=== PATIENT | female | born 1990 | race Two or more races ===

== ENCOUNTER 2023-08-16 08:11 | Emergency (ER) | payer OTHER ==
[~2023-08-16] VITALS: Ht 165.1 cm; Wt 59.0 kg
[~2023-08-16 08:11] MED LIST: LOVENOX 40 MG/0.4 ML SUBCUTANEO; POM (MEDICAMENTO EN PISO) VG; PROCARDIA PO; VISTARIL50 MG PO
[2023-08-16 09:26] LABS: HEMATOCRIT 38.8 % (36.0-45.00); HEMOGLOBIN 13.4 g/dL (12.0-15.00); MEAN CELL VOLUME 88.1 fL (80.00-100.00); MEAN CORPUSCULAR HEMOGLOBIN 30.5 pg (27.00-32.0); MEAN CORPUSCULAR HGB CONC 34.6 g/dl (32.0-36.0); PLATELET COUNT 171 K/uL (150-450); RED BLOOD COUNT 4.41 M/uL (4.00-6.00); RED CELL DISTRIBUTION WIDTH 12.4 % (11.5-14.5)
== END 2023-08-16 10:37 | disposition home or self-care (01) ==
LOC: ER 08:13
PROVIDERS: Emergency Medicine
DX: J06.9 Acute upper respiratory infection, unspecified (principal); Z91.041 Radiographic dye allergy status; Z20.822 Contact with and (suspected) exposure to COVID-19

== ENCOUNTER 2023-08-20 08:14 | Emergency (ER) | payer OTHER ==
[~2023-08-20] VITALS: Ht 165.1 cm; Wt 59.0 kg
[2023-08-20 09:50] LABS: HEMATOCRIT 34.6 % (36.0-45.00); HEMOGLOBIN 12.3 g/dL (12.0-15.00); MEAN CELL VOLUME 88.4 fL (80.00-100.00); MEAN CORPUSCULAR HEMOGLOBIN 31.4 pg (27.00-32.0); MEAN CORPUSCULAR HGB CONC 35.5 g/dl (32.0-36.0); RED BLOOD COUNT 3.92 M/uL (4.00-6.00); RED CELL DISTRIBUTION WIDTH 12.3 % (11.5-14.5)
[2023-08-20 10:10] LABS: ALBUMIN 3.7 gm/dL (3.4-5.0); BILIRUBIN TOTAL 0.66 mg/dL (0.3-1.2); CALCIUM 8.4 mg/dL (8.5-10.1); CREATININE SERUM 0.6 mg/dL (0.55-1.02); GFR 115.13; GLOBULINA 3.4 G/DL (2.4-3.5); POTASSIUM 3.57 mEq/L (3.5-5.1); TOTAL PROTEIN 7.1 gm/dL (6.4-8.2)
[2023-08-20 10:30] LABS: PLATELET COUNT 111 K/uL (150-450)
[2023-08-20] MEDS ORDERED: PEPCID AC20 MG PO (10:33)
[2023-08-20] MEDS ORDERED: TUSNEL LIQUID178 ML PO (10:33)
[2023-08-20] MEDS ORDERED: ONDANSETRON ODT8 MG PO (10:33)
[2023-08-20] MEDS ORDERED: PAXLOVID 300-11 EAC1 PO (10:33)
== END 2023-08-20 10:51 | disposition home or self-care (01) ==
LOC: ER 08:15
PROVIDERS: General Practice
DX: U07.1 COVID-19 (principal); Z91.040 Latex allergy status

== ENCOUNTER 2024-05-23 20:41 | Emergency (ER) | payer OTHER ==
[~2024-05-23] VITALS: Ht 167.6 cm; Wt 54.4 kg
[~2024-05-23 20:41] MED LIST changes: +ONDANSETRON ODT8 MG PO; +PAXLOVID 300-11 EAC1 PO; +PEPCID AC20 MG PO; +TUSNEL LIQUID178 ML PO
[2024-05-23 22:28] LABS: HEMATOCRIT 38.3 % (36.0-45.00); HEMOGLOBIN 13.6 g/dL (12.0-15.00); MEAN CELL VOLUME 88.9 fL (80.00-100.00); MEAN CORPUSCULAR HEMOGLOBIN 31.7 pg (27.00-32.0); MEAN CORPUSCULAR HGB CONC 35.6 g/dl (32.0-36.0); PLATELET COUNT 249 K/uL (150-450); RED BLOOD COUNT 4.31 M/uL (4.00-6.00); RED CELL DISTRIBUTION WIDTH 12.9 % (11.5-14.5)
[2024-05-23 22:51] LABS: CALCIUM 8.9 mg/dL (8.5-10.1); CREATININE SERUM 0.78 mg/dL (0.55-1.02); GFR 85.05; POTASSIUM 3.57 mEq/L (3.5-5.1)
[2024-05-23 23:34] LABS: PH,URINE 5.5 (5.0-8.0); URINE APPEARANCE Clear; URINE BILIRRUBIN Negative (NEGATIVE); URINE BLOOD Trace; URINE COLOR Yellow; URINE GLUCOSE Negative (NEGATIVE); URINE KETONE Negative (NEGATIVE); URINE LEUKOCYTE Small; URINE NITRATE Negative; URINE PROTEIN Negative (NEGATIVE); URINE UROBILINOGEN 0.2 E.U./dl
[2024-05-23 23:39] LABS: URINE BACTERIA 2019.6 uL (0.0-1933); URINE EPITHELIAL CELLS 43.4 uL (0.0-38.8); URINE RBC 5.9 uL (0.0-20.8); URINE WBC 218.3 uL (0.0-23.2)
[2024-05-23 23:59] LABS: URINE CAST 0.61 uL (0.0-1.40)
== END 2024-05-24 03:06 | disposition home or self-care (01) ==
LOC: ER 20:43
PROVIDERS: General Practice
DX: R30.0 Dysuria (principal); N39.0 Urinary tract infection, site not specified